=== PATIENT | male | born 2005 | race American Indian/Alaskan Native ===

== ENCOUNTER 2025-04-23 10:11 | Emergency (ER) | payer SELFPAY ==
[2025-04-23] MEDS: Albuterol 0.083% 2.5 MG/3 ML Neb Soln NEB ONE ×2 (10:58→11:54)
[2025-04-23] MEDS: Budesonide 0.5 MG/2 ML Neb Susp NEB ONE ×2 (10:59→11:54)
[2025-04-23] MEDS: Magnesium Sulfat/D5W 1GM/100ML 1 GM in Premix Bag 1 BAG IV ONE (11:08)
== END 2025-04-23 12:35 | disposition home or self-care (01) ==
LOC: DL.ED 10:11
DX: J45.901 Unspecified asthma with (acute) exacerbation (principal); Z79.899 Other long term (current) drug therapy
CPT/HCPCS: 71045; 94640; 96365; 99285; J3475; J7613; J7620; A9270-GY